=== PATIENT | female | born 1940 | race Caucasian/White ===

== ENCOUNTER → 2020-04-12 | Outpatient (CLI) | payer MEDICARE ==
[~2020-04-12] MED LIST: COUM1TAB17 PO; COUM1TAB18 PO; OXYC1TAB23 PO; PROHANCE 279.3MG/ML 15ML VIAL As Ordered ONE; TYLE325T5 PO; no home meds
--- NOTE | 2020-04-12 17:06 | REPVR ---
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 Contrast material: PROHANCE; Contrast volume: 15 ml; Contrast route: IV; COMPARISON: MRI-Brain W/O FOLL BY WITH 10/14/2016 11:25 AM FINDINGS: Brain: There is no acute cerebral infarction or intracranial hemorrhage. There are diffuse dilated perivascular spaces. Scattered white matter hyperintensities are again seen possibly due to microangiopathy. 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 It appears to measure 2.1 cm AP by 1 cm cc on series 901, image 1 frame 10. Ventricles: The ventricles appear mildly enlarged, but not out of proportion to the degree of parenchymal volume loss. Bones/joints: Unremarkable. Sinuses: Normal as visualized. No acute sinusitis. Mastoid air cells: Normal as visualized. No mastoid effusion. Orbits: Unremarkable. Soft tissues: Unremarkable. 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 On the 2 dimensions which are visual in the sagittal plane is not increased in size in comparison to the 10/14/2016 MRI. If additional post gadolinium images become available, an addendum can be added to this dictation. Electronically signed by: Jayla Carmichael On 04/12/2020 17:06:22 PM
--- NOTE | 2020-04-18 09:32 | REP ---
INTRACRANIAL MRA: 04/12/2020 INDICATION: Aneurysm. Followup. TECHNIQUE: 3D [id number] imaging of the intracranial vessels was performed without IV gadolinium. COMPARISON: 10/14/2016 FINDINGS: The left cavernous/hypophyseal aneurysm is essentially stable projecting inferiorly and slightly laterally. Current measurements are 4.5 x 2.7 mm. No new aneurysms are present. There is no intracranial high-grade stenosis, AVM, or additional vascular pathology. The vertebral arteries are essentially codominant. IMPRESSION: Stable left cavernous ICA aneurysm. No new aneurysms. MTDD
== END ==
LOC: M RAD 14:12
PROVIDERS: ATTEND Physician Assistant Medical
DX: D32.9 Benign neoplasm of meninges, unspecified (principal); I67.1 Cerebral aneurysm, nonruptured
CPT/HCPCS: 70544; 70553; A9576